=== PATIENT | female | born 1970 | race Caucasian/White ===

== ENCOUNTER → 2019-02-15 | Outpatient (CLI) | payer BC ==
[~2019-02-15] MED LIST: CIPROFLOXACIN500 M1 PO; COMPAZINE10 M1 PO; FLOMAX0.4 MG PO; LEXAPRO 10 MG T10 M1 PO; MACROBID 100 M100 M1 PO; OMEPRAZOLE; PHENERGAN; POTASSIUM20 PO; SYNTHROID50 MCG PO; TRAMADOL 50 MG50 MG PO
--- NOTE | 2019-02-15 10:57 | EKG ---
[place] [address] ELECTROCARDIOGRAM REPORT Name: KOMALMIKE Room: [facility]#: [id number] Admission: 02/15/19 Attend Phys: Shweta Jimenes, Discharge: Date of : 66 Report #: [id number] THIS REPORT FOR: //name// [facility] Test Date: 2019-02-15 Test Time: 10:38:25 Pat Name: MIKE SAUCEDA Department: Room: Gender: F Brim Buster: : 1970 Requested By: Shweta Jimenes Order Number: [id number] Reading MD: Giancarlo Flowers Measurements Intervals [place] Rate: 93 P: 75 VT: 131 QRS: 1 QRSD: 92 T: 28 QT: 362 QTc: 451 Interpretive Statements Sinus rhythm Inferior infarct, old Compared to ECG 09/15/2007 14:26:12 No significant changes Electronically Signed On 02-15-2019 10:57:44 CDT by Giancarlo Flowers [email or web address] <ELECTRONICALLY SIGNED> By: Giancarlo Flowers MD, [facility] 02/15/19 1057 1038 1038 Giancarlo Flowers MD, [facility] /EPI
== END ==
LOC: M.CRD 10:07
DX: Z01.818 Encounter for other preprocedural examination (principal); N20.1 Calculus of ureter

== ENCOUNTER → 2019-02-22 | Day surgery (SDC) | payer BC ==
[~2019-02-22] MED LIST changes: +FISH OIL 1,001000 M2 PO; +LEVSIN-SL0.125 MG SUBLING; +NEXIUM40 MG PO; +PHENAZOPYRIDIN200 M2 PO; +SYNTHROID25 MC1 PO; +TYLENOL EXTRA500 MG PO; +XANAX 0.25 MG0.25 MG PO
--- NOTE | 2019-03-14 16:30 | OP ---
[facility] [address] [place] [address] OPERATIVE REPORT Name: MIKE SAUCEDA Room: [facility]#: [id number] Admission: 02/22/19 Attend Phys: Shweta Jimenes, Discharge: Date of : 66 Report #: [id number] THIS REPORT FOR: //name// CC: [facility] Shweta Collins DATE OF SERVICE: 02/22/2019 PREOPERATIVE DIAGNOSIS: History of left proximal ureteral stone. POSTOPERATIVE DIAGNOSIS: History of left proximal ureteral stone. PROCEDURE: Cystourethroscopy, left ureteral stent removal and left retrograde pyelogram. SURGEON: Shweta Jimenes M.D. ANESTHESIA: General. ESTIMATED BLOOD LOSS: None. COMPLICATIONS: None. SPECIMENS: None. INDICATIONS FOR PROCEDURE: The patient is a 48-year-old female who underwent left ureteroscopy on 01/26/2019 for an impacted proximal ureteral stone. Due to the impacted stone and the ureteroscopy, her ureteral wall looked a bit thin, and so I left the stent in place for 1 month to allow healing. She now presents for cysto, possible left stent removal versus exchange and left retrograde pyelogram to ensure the ureter looks good and healed. Risks of procedure were discussed including but not limited to infection, bleeding, injury to the urethra, bladder, ureter, need for prolonged stent, cardiopulmonary complications. She voiced understanding and wished to proceed. DESCRIPTION OF PROCEDURE: After informed consent was obtained, the patient was taken back to the operating room and placed supine. After induction of general anesthesia, she was placed in dorsal lithotomy position. Genitalia were prepped and draped in standard fashion. Rigid cystoscopy was performed. Urethra was normal. Bladder was normal without lesions. She had a mild edematous response of the left UO from the stent, but otherwise the stent looked in good position and was not encrusted. The stent was externalized at the meatus and a sensor wire was threaded through the stent and up into the kidney. Using a dual lumen catheter over the wire, retrograde was performed gently. This revealed normal ureter and collecting system without filling defects, [place] [address] OPERATIVE REPORT Name: MIKE SAUCEDA Room: [facility]#: [id number] Admission: 02/22/19 Attend Phys: Shweta Jimenes, Discharge: Date of : 66 Report #: [id number] extravasation. Given the ureter looked like it healed very well, the wire and ureteral catheter were removed and decided to leave her stent free as she has healed. The bladder was then drained and the scope was removed. A 5 mL of lidocaine jelly were placed per urethra for local anesthesia. She was awoken, extubated and taken to recovery in satisfactory condition. She will be dismissed home and will follow up with me in a week or two. <ELECTRONICALLY SIGNED> By: Shweta Jimenes MD 03/14/19 1630 1521 [id number] Jimenes MD /nt
== END | disposition home or self-care (01) ==
LOC: M.SUR 11:48
DX: Z46.6 Encounter for fitting and adjustment of urinary device (principal); Z87.442 Personal history of urinary calculi; Z88.2 Allergy status to sulfonamides; Z88.8 Allergy status to other drugs, medicaments and biological substances; Z79.899 Other long term (current) drug therapy

== ENCOUNTER → 2020-03-18 | Outpatient (CLI) | payer BC ==
[2020-03-18 09:33] LABS: CREATININE 0.8 mg/dL (0.6-1.3)
== END ==
LOC: M.CT 08:46
PROVIDERS: ATTEND Family Medicine
DX: N20.0 Calculus of kidney (principal); K50.918 Crohn's disease, unspecified, with other complication; R10.9 Unspecified abdominal pain; N83.202 Unspecified ovarian cyst, left side; Z87.442 Personal history of urinary calculi